=== PATIENT | female | born 1935 | race Caucasian/White ===

== ENCOUNTER → 2016-12-13 | Outpatient (CLI) | payer OTHER, MEDICAID | LOC: FIMAGING 15:40 | PROVIDERS: ATTEND Family Medicine | DX: Z09 Encounter for follow-up examination after completed treatment for conditions other than malignant neoplasm (principal); Z98.1 Arthrodesis status; J42 Unspecified chronic bronchitis ==

== ENCOUNTER → 2017-06-29 | Outpatient (CLI) | payer OTHER, MEDICAID | LOC: FIMAGING 12:54 | PROVIDERS: ATTEND Family Medicine | DX: D17.39 Benign lipomatous neoplasm of skin and subcutaneous tissue of other sites (principal) | CPT/HCPCS: G0204 ==

== ENCOUNTER → 2017-07-19 | Outpatient (CLI) | payer OTHER, MEDICAID | PROVIDERS: ATTEND Physician Assistant | DX: R13.19 Other dysphagia (principal); R12 Heartburn; K29.70 Gastritis, unspecified, without bleeding; I10 Essential (primary) hypertension; R06.02 Shortness of breath ==

== ENCOUNTER 2017-09-21 03:55 | Inpatient (IN) | payer OTHER, MEDICAID ==
[2017-09-21] MEDS ORDERED: NS 1,000 ML IV ONE (03:59)
[2017-09-21] MEDS ORDERED: IPRATROPIUM/ALBUTEROL 3 ML DEYVIAL IH ONE (04:02)
--- NOTE | 2017-09-21 04:07 | EDPHY ---
H & P HPI/ROS: HPI CHIEF COMPLAINT: Shortness of breath, generalized weakness, cough HISTORY OF PRESENT ILLNESS: This patient is 81-year-old female, history of diabetes, hypertension, presents emergency room by EMS for progressively worsening shortness of breath over the last 2-3 days. No reported fever but does have a cough. Unclear if she has productive sputum. Family called 911 tonight as she is having worsening shortness of breath and cough this evening. Could not catch her breath. She is brought in by EMS with stable vital signs. She does complain of generalized weakness. She is Iranian-speaking only, her grandson is at bedside who speaks Iranian and [place]. Patient distally complains of pain in her chest when she coughs. Denies hemoptysis. Past Medical History: Hypertension, diabetes left lower extremity cellulitis, Parkinson's, anemia Past Surgical History: Back surgery Social History: Denies daily use of drugs alcohol tobacco products. Family History: Noncontributory ROS REVIEW OF SYSTEMS: A comprehensive 10 point review of systems is otherwise negative aside from elements mentioned in the history of present illness. Exam Constitutional appears nontoxic but does appear dehydrated triage nursing summary reviewed, vital signs reviewed, awake/alert. Eyes normal conjunctivae and sclera, EOMI, PERRLA. HENT oropharynx shows thrush, normal inspection, atraumatic, dry mucous membranes, no epistaxis, neck supple/ no meningismus, no raccoon eyes. Respiratory decreased breath sounds bilaterally, crackles on the right base, rhonchorous breath sounds throughout, rhonchorous cough. Cardiovascular rate normal, regular rhythm, no murmur, no edema, distal pulses normal. Gastrointestinal soft, non-tender, no rebound, no guarding, normal bowel sounds, no distension, no pulsatile mass. Genitourinary no CVA tenderness. Musculoskeletal no midline vertebral tenderness, full range of motion, no calf swelling, no tenderness of extremities, no meningismus, good pulses, neurovascularly intact. Skin pink, warm, & dry, no rash, skin atraumatic. Neurologic awake, alert and oriented x 3, AAOx3, moves all 4 extremities equally, motor intact, sensory intact, CN II-XII intact, normal cerebellar, normal vision, normal speech. Psychiatric normal mood/affect. Heme/Lymph/Immune no lymphadenopathy. 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 Re-evaluation: EKG interpretation by me on record in [employer] system. Impression time of EKG 4:25 a.m., sinus rhythm rate of 84. No acute ischemic change appreciated. 0508: The patient has a positive D-dimer. In the setting of shortness of breath will proceed with a CT angiogram of her chest. Will pulmonary embolism. CT scan of the chest angiogram with IV contrast shows no pulmonary embolism. No focal pneumonia there is atelectasis of peribronchial thickening consistent bronchitis. This patient be admitted to the hospitalist service for shortness of breath, bronchitic sounding cough. She did receive a DuoNeb breathing treatment here and is on supplemental oxygen resting at this time. Additional she is weak globally. Source: Patient, EMS - Personal History Tetanus Vaccine Date: 2010 - Medical/Surgical History Hx Asthma: No Hx Chronic Respiratory Disease: No Hx Diabetes: No Hx Cardiac Disease: No Hx Renal Disease: No Hx Cirrhosis: No Hx Alcoholism: No Hx HIV/AIDS: No Hx Splenectomy or Spleen Trauma: No Other PMH: htn,parkinson's,arthritis, BACK AND FOOT PROB X 2 MONTHS, - Social History Smoking Status: Never smoked Constitutional: Initial Vital Signs O2 Sat (%) 98 09/21/17 03:59 O2 Delivery Mode Room Air O2 (L/minute) 2 Allergies/Adverse Reactions: lactose Allergy (Intermediate, Verified 07/07/16 13:52) Abdominal Cramping Home Medications: Medication Instructions Recorded Carbidopa/Levodopa 25/100Mg 1 tab PO TID 12/24/11 [Sinemet 25/100 MG (*)] Lisinopril [Zestril 20 mg (*)] 20 mg PO DAILY 12/24/11 Gabapentin [Neurontin 100 MG (*)] 100 mg PO TID 02/06/15 Metoprolol Succinate Xr [Toprol Xl 25 mg PO HS 02/06/15 25 mg (*)] Zolpidem Tartrate [Ambien 5MG (*)] 2.5 - 5 mg PO HS 05/14/15 Ondansetron Odt [Zofran Odt 4 mg 4 - 8 mg PO DAILY PRN 07/06/16 (*)] oxyCODONE IR [Oxycodone Ir (*)] 5 mg PO Q6HRS PRN 07/06/16 Esomeprazole Mag Trihydrate 40 mg PO BID 09/21/17 [Nexium] Herbals/Supplements -Info Only 1 ea PO DAILY 09/21/17 Lisinopril [Zestril 20 mg (*)] 30 mg PO HS 09/21/17 Medical Decision Making - Data Points Laboratory Results: Laboratory Results 09/22/17 04:30 09/22/17 04:30 Microbiology Results: MICROBIOLOGY 09/21/17 05:06 Blood Blood Culture - Preliminary 09/21/17 04:42 Blood Blood Culture - Preliminary Medications Given: Acetaminophen (Tylenol) 650 mg PO Q4HRS PRN PRN Reason: Pain, Mild/Fever, Can Take PO Stop: 03/20/18 06:15 Last Admin: 09/21/17 06:35 Dose: 650 mg Carbidopa/Levodopa (Sinemet) 1 tab PO TID [facility] Stop: 03/20/18 09:29 Last Admin: 09/22/17 20:51 Dose: 1 tab Gabapentin (Neurontin) 100 mg PO TID [facility] Stop: 03/20/18 09:29 Last Admin: 09/22/17 20:51 Dose: 100 mg Lisinopril (Zestril) 20 mg PO DAILY [facility] Stop: 03/20/18 09:29 Last Admin: 09/22/17 08:13 Dose: 20 mg Lisinopril (Zestril) 30 mg PO [facility] Stop: 03/20/18 20:59 Last Admin: 09/22/17 20:50 Dose: 30 mg Metoprolol Succinate (Toprol Xl) 25 mg PO [facility] Stop: 03/20/18 20:59 Last Admin: 09/22/17 20:51 Dose: 25 mg Oseltamivir Phosphate (Tamiflu) 75 mg PO [facility] Stop: 09/26/17 08:01 Last Admin: 09/22/17 17:22 Dose: 75 mg Oxycodone HCl (Oxycodone Ir) 5 mg PO Q6HRS PRN PRN Reason: Pain, Severe Stop: 10/01/17 09:14 Last Admin: 09/22/17 20:50 Dose: 5 mg Pantoprazole Sodium (Protonix) 40 mg PO BID [facility] Stop: 03/20/18 09:29 Last Admin: 09/22/17 20:51 Dose: 40 mg Throat Lozenges (Cepacol Lozenge) 1 ea PO PRN PRN PRN Reason: Sore Throat Stop: 03/20/18 17:23 Last Admin: 09/22/17 22:28 Dose: 1 ea Zolpidem Tartrate (Ambien) 2.5 - 5 mg PO HS [facility] Stop: 03/20/18 20:59 Last Admin: 09/21/17 21:40 Dose: 5 mg Discontinued Medications Albuterol/Ipratropium (Duoneb) 3 ml IH EDNOW ONE Stop: 09/21/17 04:03 Last Admin: 09/21/17 04:14 Dose: 3 ml Sodium Chloride (Ns) 1,000 mls @ 0 mls/hr IV EDNOW ONE; Wide Open PRN Reason: Protocol Stop: 09/21/17 04:00 Last Admin: 09/21/17 04:14 Dose: 1,000 mls Sodium Chloride (1/2 Ns) 1,000 mls @ 75 mls/hr IV CONT [facility] Stop: 03/20/18 08:59 Last Admin: 09/22/17 05:32 Dose: 1,000 mls Departure - Departure Disposition: [facility] Acute Clinical Impression: Bronchitis, Shortness of breath Condition: Fair
[2017-09-21 04:53] LABS: PLATELET COUNT 170 10^3/uL (150-400)
[2017-09-21 05:02] LABS: INR 0.95 (0.83-1.16); PROTIME(PATIENT) 12.9 SEC (12.0-15.0)
[2017-09-21 05:22] LABS: CREATINE KINASE 42 IU/L (0-156)
[2017-09-21] MEDS ORDERED: IOPAMIDOL (ISOVUE 370) 100 ML BTL IV ONE (05:33)
[2017-09-21] MEDS ORDERED: ALBUTEROL 3 ML DEYVIAL IH PRN (06:16)
[2017-09-21] MEDS ORDERED: ONDANSETRON 4 MG/2 ML VIAL IVP PRN (06:16)
[2017-09-21] MEDS ORDERED: ACETAMINOPHEN 325 MG TAB PO PRN (06:16)
[2017-09-21] MEDS ORDERED: ONDANSETRON DISINTEGRATING 4 MG TAB PO PRN ×2 (06:16→09:15)
[2017-09-21] MEDS ORDERED: ACETAMINOPHEN 325 MG TAB ONE (06:34)
--- NOTE | 2017-09-21 06:39 | PDGENHP ---
History and Physical - Chief Complaint Cough - History of Present Illness 81 yo F w/ Parkinson's, HTN, and chronic pain from spinal stenosis presents with cough. Patient was in usual state of health until about 3 days ago when she developed a cough. Since then she also began to experience fatigue and subjective fevers. These symptoms progressed until family decided to bring her to the ED. In the ED work-up was relatively unremarkable with CT angio of the chest notable only for bronchitis. She is being admitted for supportive care. History Information - Allergies/Home Medication List Allergies/Adverse Reactions: lactose Allergy (Intermediate, Verified 07/07/16 13:52) Abdominal Cramping Home Medications: Carbidopa/Levodopa 25/100Mg [Sinemet 25/100 MG (*)] 1 tab PO TID 12/24/11 [Last Taken 07/05/16] Lisinopril [Zestril 20 mg (*)] 20 mg PO DAILY 12/24/11 [Last Taken 07/05/16 11: 30] Gabapentin [Neurontin 100 MG (*)] 100 mg PO TID 02/06/15 [Last Taken 07/05/16] Metoprolol Succinate Xr [Toprol Xl 25 mg (*)] 25 mg PO DAILY 02/06/15 [Last Taken 07/05/16] Multivitamins [Multivitamin (*)] 1 each PO DAILY 02/06/15 [Last Taken Unknown] Zolpidem Tartrate [Ambien 5MG (*)] 2.5 - 5 mg PO HS 02/06/15 [Last Taken ] Polyethylene Glycol 3350 [Miralax 17 gm (*)] 17 gm PO DAILY PRN 06/16/16 [Last Taken 07/05/16] Triamcinolone 0.1% [Triamcinolone 0.1% Cream (*)] 1 shivani TP BID PRN 06/16/16 [ Last Taken 06/30/16] Omeprazole [Prilosec 20 mg] 40 mg PO DAILY 07/06/16 [Last Taken 07/05/16] Ondansetron Odt [Zofran Odt 4 mg (*)] 4 mg PO DAILY PRN 07/06/16 [Last Taken Unknown] oxyCODONE IR [Oxycodone Ir (*)] 5 mg PO Q4 PRN 07/06/16 [Last Taken 07/05/16 23: 30] I have personally reviewed and updated: family history, medical history - Past Medical History hypertension Additional medical history: Parkinson's Disease. Spinal stenosis - Surgical History Reports: spinal surgery - Family History Additional family history: Asked, denies - Social History Smoking Status: Never smoked Review of Systems Review of Systems: ROS: 10pt was reviewed & negative except for what was stated in HPI & below Physical Exam Physical Exam: Temp Pulse Resp BP Pulse Ox 37.1 C 81 17 151/68 H 96 09/21/17 04:03 09/21/17 06:00 09/21/17 06:00 09/21/17 06:00 09/21/17 06:00 Constitutional: appears nourished, uncomfortable Eyes: PERRL, anicteric sclera Ears, Nose, Mouth, Throat: moist mucous membranes, no oral mucosal ulcers Cardiovascular: regular rate and rhythym, no murmur, rub, or gallop Respiratory: no respiratory distress, no rales or rhonchi Gastrointestinal: normoactive bowel sounds, soft, non-tender abdomen Skin: warm, normal color Neurologic: AAOx3, sensation intact bilaterally Psychiatric: interacting appropriately, not anxious Lab Data & Imaging Review 09/21/17 04:42 09/21/17 04:42 WBC 4.40 10^3/uL (3.80-9.50) 09/21/17 04:42 RBC 4.10 10^6/uL (4.18-5.33) L 09/21/17 04:42 Hgb 12.2 g/dL (12.6-16.3) L 09/21/17 04:42 Hct 36.8 % (38.0-47.0) L 09/21/17 04:42 MCV 89.8 fL (81.5-99.8) 09/21/17 04:42 MCH 29.8 pg (27.9-34.1) 09/21/17 04:42 MCHC 33.2 g/dL (32.4-36.7) 09/21/17 04:42 RDW 13.4 % (11.5-15.2) 09/21/17 04:42 Plt Count 170 10^3/uL (150-400) 09/21/17 04:42 MPV 9.8 fL (8.7-11.7) 09/21/17 04:42 Neut % (Auto) 59.2 % (39.3-74.2) 09/21/17 04:42 Lymph % (Auto) 27.7 % (15.0-45.0) 09/21/17 04:42 [place] % (Auto) 11.1 % (4.5-13.0) 09/21/17 04:42 Eos % (Auto) 0.7 % (0.6-7.6) 09/21/17 04:42 Baso % (Auto) 0.2 % (0.3-1.7) L 09/21/17 04:42 Nucleat RBC Rel Count 0.0 % (0.0-0.2) 09/21/17 04:42 Absolute Neuts (auto) 2.60 10^3/uL (1.70-6.50) 09/21/17 04:42 Absolute Lymphs (auto) 1.22 10^3/uL (1.00-3.00) 09/21/17 04:42 Absolute Monos (auto) 0.49 10^3/uL (0.30-0.80) 09/21/17 04:42 Absolute Eos (auto) 0.03 10^3/uL (0.03-0.40) 09/21/17 04:42 Absolute Basos (auto) 0.01 10^3/uL (0.02-0.10) L 09/21/17 04:42 Absolute Nucleated RBC 0.00 10^3/uL (0-0.01) 09/21/17 04:42 Immature Gran % 1.1 % (0.0-1.1) 09/21/17 04:42 Immature Gran # 0.05 10^3/uL (0.00-0.10) 09/21/17 04:42 PT 12.9 SEC (12.0-15.0) 09/21/17 04:45 INR 0.95 (0.83-1.16) 09/21/17 04:45 APTT 29.5 SEC (23.0-38.0) 09/21/17 04:45 D-Dimer 0.61 ug/mLFEU (0.00-0.50) H 09/21/17 04:45 VBG Lactic Acid 1.0 mmol/L (0.7-2.1) 09/21/17 04:42 Sodium 145 mEq/L (134-144) H 09/21/17 04:42 Potassium 3.9 mEq/L (3.5-5.2) 09/21/17 04:42 Chloride 107 mEq/L (97-110) 09/21/17 04:42 Carbon Dioxide 28 mEq/l (22-31) 09/21/17 04:42 Anion Gap 10 mEq/L (8-16) 09/21/17 04:42 BUN 22 mg/dL (7-23) 09/21/17 04:42 Creatinine 0.8 mg/dL (0.6-1.0) 09/21/17 04:42 Estimated GFR > 60 09/21/17 04:42 Glucose 88 mg/dL (70-100) 09/21/17 04:42 Calcium 8.3 mg/dL (8.5-10.4) L 09/21/17 04:42 Magnesium 1.8 mg/dL (1.6-2.3) 09/21/17 04:42 Total Bilirubin 0.2 mg/dL (0.1-1.4) 09/21/17 04:42 Conjugated Bilirubin 0.1 mg/dL (0.0-0.5) 09/21/17 04:42 Unconjugated Bilirubin 0.1 mg/dL (0.0-1.1) 09/21/17 04:42 AST 17 IU/L (14-46) 09/21/17 04:42 ALT 18 IU/L (9-52) 09/21/17 04:42 Alkaline Phosphatase 111 IU/L (38-126) 09/21/17 04:42 Creatine Kinase 42 IU/L (0-156) 09/21/17 04:42 CK-MB (CK-2) Fraction 0.86 ng/mL (0.00-3.19) 09/21/17 04:42 Troponin I < 0.012 ng/mL (0.000-0.034) 09/21/17 04:42 NT-Pro-B Natriuret Pep 286 pg/mL (0-450) 09/21/17 04:42 Total Protein 6.8 g/dL (6.3-8.2) 09/21/17 04:42 Albumin 3.5 g/dL (3.5-5.0) 09/21/17 04:42 Lipase 76 IU/L (23-300) 09/21/17 04:42 Urine Color PALE YELLOW 09/21/17 06:13 Urine Appearance HAZY 09/21/17 06:13 Urine pH 5.0 (5.0-7.5) 09/21/17 06:13 Ur Specific [place] 1.021 (1.002-1.030) 09/21/17 06:13 Urine Protein NEGATIVE (NEGATIVE) 09/21/17 06:13 Urine Ketones NEGATIVE (NEGATIVE) 09/21/17 06:13 Urine Blood NEGATIVE (NEGATIVE) 09/21/17 06:13 Urine Nitrate NEGATIVE (NEGATIVE) 09/21/17 06:13 Urine Bilirubin NEGATIVE (NEGATIVE) 09/21/17 06:13 Urine Urobilinogen NEGATIVE EU (0.2-1.0) 09/21/17 06:13 Ur Leukocyte Esterase TRACE (NEGATIVE) H 09/21/17 06:13 Urine Glucose NEGATIVE (NEGATIVE) 09/21/17 06:13 Imaging Review: CT Angio Chest Preliminary: no pe, mild bronchitis, mild atx, degen t spine Assessment & Plan Assessment: 81 yo F w/ PD, HTN, and spinal stenosis presents with likely viral bronchitis. Plan: 1. Cough, fatigue, subjective fevers - Likely viral illness noting constellation of symptoms; 0/4 SIRS criteria complicated by mild hypoxia. CTPE notable only for mild bronchitis. - Respiratory PCR, blood cultures ordered - Observe off of antibiotics - Supportive care w/ mIVF, APAP PRN, anti-emetics PRN 2. Hx PD - Takes carbidopa/levidopa TID. 3. Spinal stenosis, chronic pain - Takes oxycodone 5 mg TID to QID. 4. HTN - On lisinopril and metoprolol as outpatient Diet - Regular Code - DNR per discussion with patient and family Ppx - SCDs Dispo - Admit to observation status
[2017-09-21] MEDS ORDERED: NS 1,000 ML IV SCH (06:45)
[2017-09-21] MEDS: oxyCODONE IR 5 MG TAB PO PRN ×3 (11:12→23:18)
[2017-09-21] MEDS: LISINOPRIL 20 MG TAB PO SCH ×2 (11:13→21:40)
[2017-09-21] MEDS: CARBIDOPA/LEVODOPA 25 MG/100 MG TAB PO SCH ×3 (11:13→21:40)
[2017-09-21] MEDS: GABAPENTIN 100 MG CAP PO SCH ×3 (11:13→21:39)
[2017-09-21] MEDS: PANTOPRAZOLE SODIUM 40 MG TAB PO SCH ×2 (11:13→21:41)
[2017-09-21] MEDS: 1/2 NS 1,000 ML IV SCH (11:15)
--- NOTE | 2017-09-21 11:15 | ASMTCASEMG ---
Living Arrangements What is your living Answers: With Child(demetris) arrangement? Who do you live with? Type Of Residence What kind of residence do Answers: House you live in? Discharge Plan Comments Coordination Status Comments Notes: CM spoke w/ JOSE Das regarding d/c POC. Pt is a 81 y/o female admitted for a cough. Therapies have been ordered and awaiting recommendations. Pt is gibraltarian speaking only and lives w/ her daughter. Needs are TBD at this time. CM to follow. Plan: TBD Date Signed: 09/21/2017 11:15 AM Electronically Signed By:MARCELINO Marshall
--- NOTE | 2017-09-21 13:36 | HOSPPROG ---
Hospitalist Progress Note Assessment/Plan: 81 yo F w/ PD, HTN, and spinal stenosis presents cough, fatigue. Plan: 1. Flu A Cough, fatigue, subjective fevers constellation of symptoms 0/4 SIRS criteria complicated by mild hypoxia. . - Respiratory PCR, blood cultures ordered - Observe off of antibiotics - Supportive care w/ mIVF, APAP PRN, anti-emetics PRN - tamiflu 2. Hx PD - Takes carbidopa/levidopa TID. 3. Spinal stenosis, chronic pain - Takes oxycodone 5 mg TID to QID. 4. HTN - On lisinopril and metoprolol as outpatient Diet - Regular Code - DNR per discussion with patient and family Ppx - SCDs Dispo - Admit to observation status Subjective: Feels better but still sick. Objective: Vital Signs Temp Pulse Resp BP Pulse Ox 36.6 C 78 20 132/63 H 98 09/21/17 11:42 09/21/17 11:42 09/21/17 11:42 09/21/17 11:42 09/21/17 11:42 09/20/17 09/21/17 09/22/17 05:59 05:59 05:59 Intake Total 500 Balance 500 PT 12.9 SEC (12.0-15.0) 09/21/17 04:45 INR 0.95 (0.83-1.16) 09/21/17 04:45 - Physical Exam Constitutional: chronically ill appearing, uncomfortable Eyes: PERRL, anicteric sclera Ears, Nose, Mouth, Throat: moist mucous membranes, hearing normal Cardiovascular: No JVD, No edema Respiratory: no respiratory distress, reduced air movement Gastrointestinal: No tenderness, No ascites Skin: warm, normal color Musculoskeletal: no joint effusions, generalized weakness Neurologic: AAOx3 Psychiatric: interacting appropriately, not encephalopathic ICD10 Worksheet Patient Problems: Problems Problem Status Onset Chest pain Acute Left leg cellulitis Acute Left leg pain Acute Bronchitis Acute Shortness of breath Acute
[2017-09-21] MEDS: OSELTAMIVIR PHOSPHATE 75 MG CAP PO SCH (17:08)
[2017-09-21] MEDS: CEPACOL LOZENGE PO PRN ×2 (18:37→21:47)
[2017-09-21] MEDS ORDERED: NON-FORMULARY NEW DRUG (Esomeprazole Mag Trihydrate [Nexium] 40 MG) PO SCH (21:00)
[2017-09-21] MEDS ORDERED: ZOLPIDEM TARTRATE 5 MG TAB PO SCH (21:00)
[2017-09-21] MEDS: METOPROLOL SUCCINATE XR 25 MG TAB PO SCH (21:40)
[2017-09-22 04:57] LABS: PLATELET COUNT 166 10^3/uL (150-400)
[2017-09-22] MEDS: 1/2 NS 1,000 ML IV SCH (05:32)
[2017-09-22] MEDS: GABAPENTIN 100 MG CAP PO SCH ×3 (08:13→20:51)
[2017-09-22] MEDS: OSELTAMIVIR PHOSPHATE 75 MG CAP PO SCH ×2 (08:13→17:22)
[2017-09-22] MEDS: LISINOPRIL 20 MG TAB PO SCH ×2 (08:13→20:50)
[2017-09-22] MEDS: CARBIDOPA/LEVODOPA 25 MG/100 MG TAB PO SCH ×3 (08:13→20:51)
[2017-09-22] MEDS: PANTOPRAZOLE SODIUM 40 MG TAB PO SCH ×2 (08:13→20:51)
[2017-09-22] MEDS ORDERED: Herbals/Supplements -Info Only PO SCH (09:00)
--- NOTE | 2017-09-22 14:06 | HOSPPROG ---
Hospitalist Progress Note Assessment/Plan: 81 yo F w/ PD, HTN, and spinal stenosis presents cough, fatigue. Plan: 1. Flu A Cough, fatigue, subjective fevers constellation of symptoms 0/4 SIRS criteria complicated by mild hypoxia. - Respiratory PCR, blood cultures NGTD - Observe off of antibiotics - Supportive care w/ mIVF, APAP PRN, anti-emetics PRN - tamiflu 2. Hx PD - Takes carbidopa/levidopa TID. 3. Spinal stenosis, chronic pain - Takes oxycodone 5 mg TID to QID. 4. HTN - On lisinopril and metoprolol as outpatient Diet - Regular Code - DNR per discussion with patient and family Ppx - SCDs Dispo - Change to inpatient. Requires further care in the hospital Can likely go home in 1-2 days if her symptoms improve. Subjective: Very tired. Feeling better then yesterday. Lots of joint pain. Objective: Vital Signs Temp Pulse Resp BP Pulse Ox 36.7 C 66 20 122/54 H 92 09/22/17 11:38 09/22/17 11:38 09/22/17 11:38 09/22/17 11:38 09/22/17 11:38 Microbiology 09/21/17 17:00 Gastrointestinal Tract Panel (PCR) - Final Stool No Organism Detected Laboratory Results 09/22/17 04:30 09/22/17 04:30 09/21/17 09/22/17 09/23/17 05:59 05:59 05:59 Intake Total 1050 Balance 1050 PT 12.9 SEC (12.0-15.0) 09/21/17 04:45 INR 0.95 (0.83-1.16) 09/21/17 04:45 - Physical Exam Constitutional: chronically ill appearing, obese, uncomfortable Eyes: PERRL, anicteric sclera, EOMI Ears, Nose, Mouth, Throat: moist mucous membranes, hearing normal, ears appear normal Cardiovascular: regular rate and rhythym, No JVD, No edema Respiratory: no respiratory distress, no rales or rhonchi, reduced air movement Gastrointestinal: normoactive bowel sounds, No tenderness, No ascites Skin: warm, normal color, No mottled Musculoskeletal: normal joint ROM, no joint effusions, generalized weakness Neurologic: AAOx3 Psychiatric: interacting appropriately, not encephalopathic, thought process linear ICD10 Worksheet Patient Problems: Problems Problem Status Onset Chest pain Acute Left leg cellulitis Acute Left leg pain Acute Bronchitis Acute Shortness of breath Acute
[2017-09-22] MEDS: oxyCODONE IR 5 MG TAB PO PRN ×2 (14:39→20:50)
[2017-09-22] MEDS: CEPACOL LOZENGE PO PRN ×3 (15:21→22:28)
--- NOTE | 2017-09-22 15:45 | PDMN ---
Medical Necessity Medical necessity: Change to IP, as of 09/22/17, per [employer]; los >2 mn for ongoing management/tx of Influenza A w/cough, fatigue, mild hypoxia & subjective fevers ; admit for further workup/monitoring, supportive care & therapies; hx Parkinsons, HTN & spinal stenosis; per progress note & order 09/22/17
[2017-09-22] MEDS: METOPROLOL SUCCINATE XR 25 MG TAB PO SCH (20:51)
[2017-09-23] MEDS: CEPACOL LOZENGE PO PRN (02:34)
[2017-09-23] MEDS ORDERED: GUAIFENESIN/DM 10 ML UDCUP PO PRN (03:51)
[2017-09-23] MEDS ORDERED: BENZONATATE 100 MG CAP PO PRN (03:51)
[2017-09-23] MEDS: oxyCODONE IR 5 MG TAB PO PRN (05:34)
[2017-09-23 08:20] VITALS: PULSE 71; RESP 14; TEMP 97.9; O2SAT 95
[2017-09-23] MEDS: GABAPENTIN 100 MG CAP PO SCH (08:43)
[2017-09-23] MEDS: CARBIDOPA/LEVODOPA 25 MG/100 MG TAB PO SCH (08:43)
[2017-09-23] MEDS: LISINOPRIL 20 MG TAB PO SCH (08:43)
[2017-09-23] MEDS: PANTOPRAZOLE SODIUM 40 MG TAB PO SCH (08:45)
[2017-09-23] MEDS: OSELTAMIVIR PHOSPHATE 75 MG CAP PO SCH (08:45)
[2017-09-23 08:52] VITALS: BP 179/85
--- NOTE | 2017-09-23 08:57 | HOSPPROG ---
Hospitalist Progress Note Assessment/Plan: 81 yo F w/ PD, HTN, and spinal stenosis presents cough, fatigue. Today is my 1st encounter with the patient. Chart reviewed. * influenza B -supportive care with Tamiflu * Parkinson's disease -continue carbidopa, levodopa three times daily * spinal stenosis with associated chronic pain -continue her home regimen of oxycodone * hypertension: bp elevated this morning *Plan: dc home w further f/u with her PCP. 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 Objective: Vital Signs Temp Pulse Resp BP Pulse Ox 36.6 C 71 14 179/85 H 95 09/23/17 08:00 09/23/17 08:00 09/23/17 08:00 09/23/17 08:43 09/23/17 08:00 09/22/17 09/23/17 09/24/17 05:59 05:59 05:59 Intake Total 250 Balance 250 PT 12.9 SEC (12.0-15.0) 09/21/17 04:45 INR 0.95 (0.83-1.16) 09/21/17 04:45 - Physical Exam Constitutional: no apparent distress, not in pain, obese Eyes: PERRL Ears, Nose, Mouth, Throat: hearing normal Cardiovascular: regular rate and rhythym Respiratory: no respiratory distress, rhonchi (few scattered in right middle lobe) Skin: warm Musculoskeletal: generalized weakness Neurologic: AAOx3 Psychiatric: interacting appropriately ICD10 Worksheet Patient Problems: Problems Problem Status Onset Bronchitis Acute Shortness of breath Acute Chest pain Acute Left leg cellulitis Acute Left leg pain Acute
--- NOTE | 2017-09-23 11:57 | PDIAF ---
- Diagnosis Diagnosis: influenza B, weakness, htn Code Status: Do Not Resuscitate - Medication Management Discharge Medications: Medications to Continue on Transfer Carbidopa/Levodopa 25/100Mg [Sinemet 25/100 MG (*)] 1 tab PO TID 12/24/11 [Last Taken 09/20/17 21:00] Lisinopril [Zestril 20 mg (*)] 20 mg PO DAILY 12/24/11 [Last Taken 09/20/17] Gabapentin [Neurontin 100 MG (*)] 100 mg PO TID 02/06/15 [Last Taken 09/20/17 21 :00] Metoprolol Succinate Xr [Toprol Xl 25 mg (*)] 25 mg PO HS 02/06/15 [Last Taken 09/20/17] Zolpidem Tartrate [Ambien 5MG (*)] 2.5 - 5 mg PO HS 02/06/15 [Last Taken 5mg] Ondansetron Odt [Zofran Odt 4 mg (*)] 4 - 8 mg PO DAILY PRN 07/06/16 [Last Taken 09/20/17 09:00] oxyCODONE IR [Oxycodone Ir (*)] 5 mg PO Q6HRS PRN 07/06/16 [Last Taken 09/20/17 23:00] Esomeprazole Mag Trihydrate [Nexium] 40 mg PO BID 09/21/17 [Last Taken 09/20/17 21:00] Herbals/Supplements -Info Only 1 ea PO DAILY 09/21/17 [Last Taken Unknown] Lisinopril [Zestril 20 mg (*)] 30 mg PO HS 09/21/17 [Last Taken 09/20/17] Benzonatate [Tessalon Pearles] 100 mg PO TID PRN #21 cap 09/23/17 [Last Taken Unknown] Oseltamivir Phosphate [Tamiflu 75 mg (*)] 75 mg PO BIDMEAL #6 cap 09/23/17 [ Last Taken Unknown] guaiFENesin/DEXTROMETHORPHAN [Robitussin Dm Oral Liquid (*)] 10 ml PO Q4HRS PRN ml 09/23/17 [Last Taken Unknown] Discharge Medications: Refer to the Discharge Home Medication list for PRN reason. - Orders Services needed: Home Care, Registered Nurse, Physical Therapy (patient should get f/u with Dr Reddy in the next week) Home Care Face to Face: I certify that this patient was under my care and that I had the required [id number] encounter meeting the encounter requirements on the discharge day. My findings support the fact that the patient is homebound as defined in Home Care Face to Face Continued: CMS Chapter 7 Medicare Benefits Manual 30.1.1 , The condition of the patient is such that there exists a normal inability to leave home and consequently, leaving home would require a considerable and taxing effort. Isolation Type: Droplet Isolation Diet Recommendation: no restrictions on diet Diet Texture: Regular Texture Diet, Thin Liquids, Meds Whole w/Liquids - Follow Up Care Current Providers and Referrals: Annie Reddy MD [Primary Care Provider] - As per Instructions
--- NOTE | 2017-09-23 13:07 | GDS ---
[f rep st] DISCHARGE SUMMARY DISCHARGE DIAGNOSES: 1. Influenza B. 2. Parkinson disease. 3. Spinal stenosis with associated chronic back pain. 4. Hypertension. HISTORY OF PRESENT ILLNESS: Briefly, the patient is a 81-year-old female who has Parkinson disease, hypertension, and spinal stenosis, who presented to the emergency room with cough and fatigue. Today, she is markedly better. She received treatment for the influenza and needs 4 more days. She will follow up with Dr. Reddy in the outpatient setting. During her stay, she had a CTA of the chest performed, which showed no evidence of pulmonary embolic disease. She has mild bronchitis, mild dependent atelectasis, and mild atelectasis in the right middle lobe. HOSPITAL COURSE PER PROBLEM: 1. Influenza B: Continue supportive care with the Tamiflu and Tessalon Perles for coughing. She is feeling markedly better. 2. Parkinson disease: Continue her home medications as she has done previous to this admission. 3. Spinal stenosis with associated chronic back pain: Stable. 4. Hypertension: Blood pressure was elevated this morning. DISCHARGE CONDITION: Stable. Blood pressure is 179/85, heart rate is 71, respiratory rate 14, O2 sat's in room air were 95% to 100% while I was in the room. Temperature is 36.6 Celsius. DISCHARGE MEDICATIONS: Please see the EMR. DISCHARGE INSTRUCTIONS: 1. Further followup with Dr. Reddy. 2. Home Care will be evaluating her in the home setting. TIME SPENT: Greater than 30 minutes discharging and coordinating the patient's care. /[id number]/MODL MTDD
--- NOTE | 2017-09-23 17:39 | ASDISCHSUM ---
Discharge Information Plan Status:Home with Home Health Medically Cleared to Leave: Discharge Date:09/23/2017 12:25 PM CM D/C Disposition:Home Health Service ADT D/C Disposition:[id number] Projected Discharge Date:09/23/2017 11:00 AM Transportation at D/C:Family Discharge Delay Reason: Follow-Up Date:09/23/2017 11:00 AM Discharge Slot: Final Diagnosis: Placement Information Referral Type:*Home Health Care Services Referral ID:[id number] Provider Name:[facility] [place] Address 1:[address] [place] [address] Address 2: City:[place] Selection Factors: State:[place] Patient Contact Information Contact Name:KWESI Relationship:Daughter Address:[address] Work Phone: City:[place] Alternate Phone: State/Zip Code:[place] [address] Email: Financial Information Financial Class: Primary Plan Desc:MEDICARE INPATIENT Primary Plan Number:[id number] Secondary Plan Desc:MED[place] Secondary Plan Number:[id number] Assessment Information [facility] Initial CM Assessment Living Arrangements What is your living Answers: With Child(demetris) arrangement? Who do you live with? Type Of Residence What kind of residence do Answers: House you live in? Discharge Plan Comments Coordination Status Comments Notes: CM spoke w/ Pippa RN regarding d/c POC. Pt is a 81 y/o female admitted for a cough. Therapies have been ordered and awaiting recommendations. Pt is portuguese speaking only and lives w/ her daughter. Needs are TBD at this time. CM to follow. Plan: TBD Date Signed: 09/21/2017 11:15 AM Electronically Signed By:MARCELINO Marshall Case Management Discharge Plan Note Case Management Discharge Discharge Order Complete? Answers: Yes Patient to Obtain Answers: Independently Medications Transportation Arranged Answers: Family/Friends Faxed Final Orders Answers: Yes Family Notified Answers: Yes Discharge Comments Notes: D/w NURSES' REGISTRY DIRECTOR, final orders faxed. Pt left before I could confirm, [facility] has accepted pt and they will follow up with her. Date Signed: 09/23/2017 12:37 PM Electronically Signed By:Loraine Hope RN Intervention Information Intervention Type:*Occurence 74 Date of Service:09/21/2017 05:15 PM Patient Type:Inpatient Staff Member:JOSE Raymond Courtney Hours: Discipline: Severity: Comment:
== END 2017-09-23 12:25 | disposition home health service (06) | DRG 194 ==
LOC: EDUNIT# → F2W 07:35 → F3E 09-22 01:11 → OBSVTOIN 09-22 14:08
PROVIDERS: ADMIT Student in an Organized Health Care Education/Training Program; ATTEND Student in an Organized Health Care Education/Training Program
DX: J10.1 Influenza due to other identified influenza virus with other respiratory manifestations (principal); J98.11 Atelectasis; G20 Parkinson's disease; M48.00 Spinal stenosis, site unspecified; I10 Essential (primary) hypertension; J40 Bronchitis, not specified as acute or chronic; G89.29 Other chronic pain; Z66 Do not resuscitate
CPT/HCPCS: 92610-GN; 97161-GP; 97166-GO; 97535-GO; G0378; G8978-GP-CJ; G8979-GP-CJ; G8987-GO-CL; G8988-GO-CK; G8996-GN-CH; G8997-GN-CH; G8998-GN-CH; Q9967

== ENCOUNTER → 2018-03-14 | Outpatient (CLI) | payer OTHER, MEDICAID | LOC: FIMAGING 09:06 | PROVIDERS: ATTEND Physician Assistant | DX: M51.26 Other intervertebral disc displacement, lumbar region (principal); M21.70 Unequal limb length (acquired), unspecified site; Z98.1 Arthrodesis status ==

== ENCOUNTER → 2018-03-21 | Outpatient (CLI) | payer OTHER, MEDICAID | LOC: FIMAGING 10:13 | PROVIDERS: ATTEND Physician Assistant | DX: M51.36 Other intervertebral disc degeneration, lumbar region (principal); M51.34 Other intervertebral disc degeneration, thoracic region; M48.061 Spinal stenosis, lumbar region without neurogenic claudication; M48.04 Spinal stenosis, thoracic region ==